=== PATIENT | male | born 1990 | race African-American/Black ===

== ENCOUNTER 2017-08-27 03:12 | Emergency (ER) | payer OTHER ==
[2017-08-27] MEDS ORDERED: LIDOCAINE 1% INJ-PF (10 MG/ML) 30 ML SDV INJ ONE (03:51)
[2017-08-27] MEDS ORDERED: DIPH/PERTUSS(ACELL)/TETANUS VAC/PF 0.5 ML SYR (>=10YO) IM ONE (03:52)
--- NOTE | 2017-08-27 04:57 | ER Document Report ---
ED General - General Chief Complaint: Laceration Stated Complaint: FINGER INJURY Time Seen by Provider: 08/27/17 03:33 Notes: Patient is a 27-year-old male who presents with complaint of laceration to his right fifth digit. Laceration is on the dorsal aspect of the PIP. Denies numbness or tingling into the finger. 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 He is unsure if he has had a tetanus shot was 5 years. He denies any other injuries. No other complaints at this time. TRAVEL OUTSIDE OF THE [place] IN LAST 30 DAYS: No - Related Data Allergies/Adverse Reactions: No Known Allergies Allergy (Verified 08/27/17 04:11) Past Medical History - Social History Smoking Status: Current Every Day Smoker Chew tobacco use (# tins/day): No Frequency of alcohol use: None Drug Abuse: None Family History: Reviewed & Not Pertinent Patient has suicidal ideation: No Patient has homicidal ideation: No Renal/ Medical History: Denies: Hx Peritoneal Dialysis - Immunizations Hx Diphtheria, Pertussis, Tetanus Vaccination: No Review of Systems - Review of Systems Notes: My Normal Review Basic REVIEW OF SYSTEMS: CONSTITUTIONAL : Denies fever, chills, or sweats. Denies recent illness. MUSCULOSKELETAL: Laceration over the dorsal aspect of the right fifth digit. SKIN: Denies rash or skin lesions. HEMATOLOGIC : Denies easy bruising or bleeding. NEUROLOGICAL: Denies sensory or motor loss. ALL OTHER SYSTEMS REVIEWED AND NEGATIVE. Physical Exam - Vital signs Vitals: Temp Pulse Resp BP Pulse Ox 98.5 F 86 18 149/95 H 97 08/27/17 03:18 08/27/17 03:18 08/27/17 03:18 08/27/17 03:18 08/27/17 03:18 - Notes Notes: General Appearance: Well nourished, alert, cooperative, no acute distress, no obvious discomfort. Well-appearing. Vitals: reviewed, See vital signs table. Extremities: strength 5/5 in all extremities, good pulses in all extremities, 1 similar laceration on the dorsal aspect of the PIP of the right fifth digit. Laceration does not expose the bone. No tendon involvement. Patient is able to fully flex and extend the finger without difficulty. Distal sensation intact. No active bleeding. Skin: warm, dry, appropriate color, no rash Neuro: speech clear, oriented x 3, normal affect, responds appropriately to questions. Course - Re-evaluation Re-evalutation: 08/27/17 04:56 Patient's wound was thoroughly irrigated with saline and cleaned with Shur- Clens. Patient tolerated this well. 3 sutures were placed. Patient has full function of his finger with flexion extension. There is no evidence of tendon involvement. He has good distal sensation. Patient encouraged to return to ER immediately if he has any redness or swelling or signs of infection. He is encouraged to return to the ER in 7 days for suture removal. Patient agrees with plan will be discharged home. Dictation of this chart was performed using voice recognition software; therefore, there may be some unintended grammatical errors. - Vital Signs Vital signs: Temp Pulse Resp BP Pulse Ox 98.5 F 86 18 149/95 H 97 08/27/17 03:18 08/27/17 03:18 08/27/17 03:18 08/27/17 03:18 08/27/17 03:18 Procedures - Laceration/Wound Repair right fifth digit Wound length (cm): 1 Wound's Depth, Shape: Linear Laceration pre-procedure: Sterile drapes applied, Shur-Clens applied Anesthetic type: 1% Lidocaine Volume Anesthetic (mLs): 1 Wound explored: Clean Irrigated w/ Saline (mLs): 20 Wound Repaired With: Sutures Suture Size/Type: 6:0, Ethilon Number of Sutures: 3 Post-procedure NV exam normal: Yes Complications: No Discharge - Discharge Clinical Impression: Finger laceration Qualifiers: Encounter type: initial encounter Finger: little finger Damage to nail status: without damage Foreign body presence: without foreign body Laterality: right Qualified Code(s): S61.216A - Laceration without foreign body of right little finger without damage to nail, initial encounter Condition: Good Disposition: HOME, SELF-CARE Additional Instructions: LACERATION CARE: Your laceration has been sutured to keep the skin edges aligned during healing. The time of suture removal depends on the nature and location of your cut. Please follow the care instructions the doctor has outlined for you and return for further care, according to the schedule you've been given. Keep the wound and dressing clean. Unless you were told otherwise, you may shower daily, blotting the wound dry with a clean, unused towel. At other times, If the dressing gets wet or blood soaked, remove it and blot the wound dry, then reapply a new dressing. Unless you were instructed otherwise, dressings should be changed at least daily. If any signs of infection occur (swelling, redness, drainage, increasing tenderness, red streaks, tender lumps in the armpit or groin above the laceration, or fever), see the doctor immediately. SOAP CLEANSING: Gently wash the wound daily using a mild soap (like Ivory, Phisoderm, Neutrogena). Use warm water, rubbing gently until all debris, ooze, and crusting have been washed from the wound. Allow to dry briefly (about 10 minutes) after cleaning. Repeat this cleansing at least three times a day for the first two days and then once or twice a day. TETANUS IMMUNIZATION GIVEN: You have been given an immunization against tetanus. Please record this in your records. In general, a booster is needed only once every 10 years. The tetanus shot protects against tetanus or "lockjaw," which is a complication of certain wound infections (the tetanus shot cannot protect against the actual infection). The immunization site may become warm and red due to local reaction. If this occurs, apply warm compresses and take aspirin or ibuprofen to reduce inflammation and discomfort. Return for evaluation if the reaction becomes severe. FOLLOW-UP CARE: Your sutures should be removed in __7___ days. To facilitate a timely removal of your sutures, you may return to the Emergency Department at [facility]. You do not need to call for an appointment, but the best time to come in for suture removal is early in the morning. If you have been referred to another physician for follow-up care, call that physicians office for an appointment as you were instructed. If you experience a significant change in your laceration, or if you are concerned there may be an infection (swelling, redness, drainage, increasing tenderness, red streaks, tender lumps in the armpit or groin above the laceration, or fever) , return to the Emergency Department immediately re-evaluation.
[2017-08-27 05:14] VITALS: BP 144/91
--- NOTE | 2017-08-27 05:14 | RADIOLOGY REPORT (SQ) ---
Right hand three view on 08/27/2017 at 4:04 AM CLINICAL INDICATION: Trauma, laceration COMPARISON: None FINDINGS: Soft tissue swelling is noted adjacent to the fifth PIP joint. There is no radiopaque foreign body. There are no fractures. Visualized joints are well aligned. No bony abnormality is noted. IMPRESSION: No acute bony abnormality.
== END 2017-08-27 05:14 | disposition home or self-care (01) ==
LOC: ER 03:12
PROC: 0HQFXZZ Repair Right Hand Skin, External Approach (ICD-10-PCS; principal; 2017-08-27)
DX: S61.216A Laceration without foreign body of right little finger without damage to nail, initial encounter (principal); W22.09XA Striking against other stationary object, initial encounter; Y93.G1 Activity, food preparation and clean up; Y99.0 Civilian activity done for income or pay; F17.200 Nicotine dependence, unspecified, uncomplicated; Z23 Encounter for immunization
CPT/HCPCS: 99283; 90471; 73120; 90715; 12001; J3490